=== PATIENT | male | born 1950 | race Caucasian/White ===

== ENCOUNTER 2020-03-23 09:18 | Inpatient (IN) | payer MEDICARE ==
[~2020-03-23] VITALS: Ht 172.7 cm; Wt 134.3 kg
[2020-03-23] MEDS ORDERED: SODIUM CHLORIDE 0.9% 1,000 ML IV ONE (09:23)
[2020-03-23] MEDS ORDERED: ONDANSETRON HCL 4MG/2ML INJ IV STA (09:23)
[2020-03-23] MEDS ORDERED: MORPHINE SULFATE 4 MG/ML CPJ (NOT FOR IM USE) IV STA (09:23)
[2020-03-23 09:46] LABS: BASOPHILS % 0.4 % (0.0-2.0); EOSINOPHILS % 1.7 % (0.0-5.0); HEMATOCRIT. 42.8 % (42.0-52.0); LYMPHOCYTES % 38.3 % (20.0-50.0); MEAN CORPUSCULAR HEMOGLOBIN 26.4 pg (28.0-32.0); MEAN CORPUSCULAR VOLUME 80.7 fL (80.0-94.0); MEAN PLATELET VOLUME 8.7 fl (7.4-10.4); MONOCYTES % 8.9 % (2.0-8.0); NEUTROPHILS % 50.7 % (40.0-76.0); PLATELET 200 x1000/uL (130-400); RED CELL DISTRIBUTION WIDTH 14.4 % (11.6-14.6)
[2020-03-23 09:52] LABS: D-DIMER 1.05 mg/L FEU (<0.50); PROTHROMBIN TIME 10.4 sec (9.6-11.0)
[2020-03-23 09:55] LABS: CHLORIDE 111 mEq/L (98-107)
[2020-03-23] MEDS ORDERED: MORPHINE SULFATE 4 MG/ML CPJ (NOT FOR IM USE) IV ONE (10:30)
[2020-03-23 11:02] LABS: CLARITY URINE CLEAR (CLEAR); COLOR URINE YELLOW (YELLOW); KETONES URINE NEGATIVE (NEGATIVE); LEUKOCYTE ESTERASE URINE NEGATIVE (NEGATIVE); NITRITE URINE NEGATIVE (NEGATIVE); OCCULT BLOOD URINE 3+ (NEGATIVE); PH URINE 5.5 (4.5-8.0); PROTEIN URINE NEGATIVE (NEGATIVE); SPECIFIC GRAVITY URINE 1.032 (1.005-1.030)
[2020-03-23] MEDS ORDERED: IOHEXOL-350 100 ML BOTTLE ONE (11:08)
[2020-03-23] MEDS ORDERED: SODIUM CHLORIDE 0.9% 1000ML BAG (SEPSIS BOLUS) IV NR (11:30)
[2020-03-23] MEDS ORDERED: PIPERACILLIN/TAZ 3.375G PREMIX 50 ML IV NR (11:30)
[2020-03-23] MEDS ORDERED: ACETAMINOPHEN 325MG TABLET PO PRN (12:30)
[2020-03-23] MEDS ORDERED: MORPHINE SULFATE 2 MG/ML CPJ (NOT FOR IM USE) IV PRN (12:30)
[2020-03-23] MEDS ORDERED: ONDANSETRON HCL 4MG/2ML INJ IV PRN (12:30)
[2020-03-23 12:47] VITALS: BP 163/69
[2020-03-23 13:00] VITALS: BP 163/96
[2020-03-23] MEDS ORDERED: AMLODIPINE 10MG TABLET PO SCH (14:30)
[2020-03-23 16:08] VITALS: BP 148/79
[2020-03-23 20:01] VITALS: BP 140/68
[2020-03-23] MEDS: LOSARTAN POTASSIUM 25 MG TABLET PO SCH (21:33)
[2020-03-24 00:08] VITALS: BP 108/51
[2020-03-24 04:00] VITALS: BP 109/46
[2020-03-24 06:09] LABS: BASOPHILS % 0.3 % (0.0-2.0); EOSINOPHILS % 1.2 % (0.0-5.0); HEMATOCRIT. 38.9 % (42.0-52.0); HEMOGLOBIN. 12.9 g/dL (14.0-18.0); LYMPHOCYTES % 24.9 % (20.0-50.0); MEAN CORPUSCULAR HEMOGLOBIN 26.6 pg (28.0-32.0); MEAN CORPUSCULAR VOLUME 80.4 fL (80.0-94.0); MEAN PLATELET VOLUME 8.9 fl (7.4-10.4); MONOCYTES % 10.2 % (2.0-8.0); NEUTROPHILS % 63.4 % (40.0-76.0); PLATELET 182 x1000/uL (130-400); RED BLOOD CELL COUNT 4.84 mill/uL (4.7-6.1); RED CELL DISTRIBUTION WIDTH 14.2 % (11.6-14.6)
[2020-03-24 06:33] LABS: CHLORIDE 111 mEq/L (98-107)
[2020-03-24 08:00] VITALS: BP 128/68
[2020-03-24] MEDS ORDERED: CEFTRIAXONE 1 G PREMIX 50 ML IV SCH (08:00)
[2020-03-24] MEDS: AMLODIPINE 10MG TABLET PO SCH (09:24)
[2020-03-24] MEDS: LOSARTAN POTASSIUM 25 MG TABLET PO SCH (09:24)
[2020-03-24] MEDS: CEFTRIAXONE 1,000 MG in DEXTROSE 5% WATER 50 ML IV SCH (10:37)
[2020-03-24 12:00] VITALS: BP 122/65
[2020-03-24 16:00] VITALS: BP 121/63
[2020-03-24 20:21] VITALS: BP 126/58
[2020-03-25 00:06] VITALS: BP 118/55
[2020-03-25 04:47] VITALS: BP 148/71
[2020-03-25 08:00] VITALS: BP 159/60
[2020-03-25] MEDS ORDERED: LEVO500T2 MT (08:26)
[2020-03-25] MEDS ORDERED: LOSA50TA41 MT (08:26)
[2020-03-25] MEDS: LOSARTAN POTASSIUM 25 MG TABLET PO SCH (09:36)
[2020-03-25] MEDS: AMLODIPINE 10MG TABLET PO SCH (09:37)
[2020-03-25] MEDS: CEFTRIAXONE 1,000 MG in DEXTROSE 5% WATER 50 ML IV SCH (09:37)
[2020-03-25 12:00] VITALS: BP 128/77
[2020-03-25 12:15] VITALS: BP 150/60
== END 2020-03-25 13:35 | disposition home or self-care (01) | DRG 308 ==
LOC: ER 09:18 → 6WST 11:42 → EDBEDREQTM 11:43 → EDBEDREQ 11:43 → ENRESERV 11:58
PROVIDERS: ADMIT Internal Medicine; ATTEND Internal Medicine
DX: I47.1 Supraventricular tachycardia (principal); A41.9 Sepsis, unspecified organism; Z68.42 Body mass index [BMI] 45.0-49.9, adult; E87.8 Other disorders of electrolyte and fluid balance, not elsewhere classified; E66.9 Obesity, unspecified; I10 Essential (primary) hypertension; I27.21 Secondary pulmonary arterial hypertension; N21.0 Calculus in bladder; N23 Unspecified renal colic; Z71.3 Dietary counseling and surveillance; N28.89 Other specified disorders of kidney and ureter
CPT/HCPCS: 36415; 71045; 71275; 74174; 80048; 80053; 81003; 83605; 83880; 84145; 84484; 85025; 85379; 93005; 93306; 99291; J0696; J2270; J2405; J2543; J7030; J7060; Q9967

== ENCOUNTER 2020-08-30 10:02 | Inpatient (IN) | payer MEDICARE ==
[~2020-08-30] VITALS: Ht 177.8 cm; Wt 136.0 kg
[~2020-08-30 10:02] MED LIST: LEVO500T2 MT; LOSA50TA41 MT
[2020-08-30] MEDS ORDERED: DEXAMETHASONE 10 MG/ML VIAL IV ONE (10:15)
[2020-08-30] MEDS ORDERED: CEFTRIAXONE 1 G PREMIX 50 ML IV ONE (10:15)
[2020-08-30] MEDS ORDERED: AZITHROMYCIN 500 MG in DEXT 5% WATER 250 ML IV ONE (10:15)
[2020-08-30 10:27] LABS: HEMATOCRIT. 49.9 % (42.0-52.0); HEMOGLOBIN. 16.1 g/dL (14.0-18.0); MEAN CORPUSCULAR HEMOGLOBIN 25.5 pg (28.0-32.0); MEAN PLATELET VOLUME 9.9 fl (7.4-10.4); PLATELET 169 x1000/uL (130-400); RED BLOOD CELL COUNT 6.32 mill/uL (4.7-6.1); RED CELL DISTRIBUTION WIDTH 14.7 % (11.6-14.6)
[2020-08-30 10:37] LABS: CHLORIDE 108 mEq/L (98-107)
[2020-08-30 10:46] LABS: FIBRINOGEN 344 mg/dL (200-400); INR 1.2; PROTHROMBIN TIME 12.5 sec (9.6-11.0)
[2020-08-30 10:49] LABS: D-DIMER > 35.20 mg/L FEU (<0.50)
[2020-08-30 10:57] LABS: CREATINE KINASE 1029 IU/L (39-308)
[2020-08-30] MEDS ORDERED: CEFTRIAXONE 1,000 MG in DEXTROSE 5% WATER 50 ML IV NR (11:00)
[2020-08-30 11:42] LABS: BG BASE EXCESS -8.5 mmol/L (-2.0-2.0); BG CARBOXYHEMOGLOBIN 0.7 % (0.5-1.5); BG METHEMOGLOBIN 0.2 % (0.0-1.5); BG OXYGEN SATURATION 89.9 % (92.0-98.5); BG OXYHEMOGLOBIN 89.1 % (94.0-97.0); BG PH 7.362 (7.350-7.450); BG PO2 62.1 mmHg (75.0-100.0); BG SAMPLE SITE LEFT BRACHIAL; BG TOTAL HEMOGLOBIN 16.6 g/dL (12.0-18.0); BG VENT MODE MASK - BIPAP
[2020-08-30 11:47] LABS: NUCLEATED RED BLOOD CELLS 2 /100 WBC
[2020-08-30 11:49] LABS: PLATELET ESTIMATE NORMAL
[2020-08-30] MEDS ORDERED: CEFTRIAXONE 1 G PREMIX 50 ML IV SCH (15:15)
[2020-08-30] MEDS ORDERED: DOCUSATE SODIUM 100MG CAPSULE PO PRN ×2 (15:15→22:45)
[2020-08-30] MEDS ORDERED: ACETAMINOPHEN 325MG TABLET PO PRN ×2 (15:15→22:30)
[2020-08-30] MEDS ORDERED: CLONIDINE 0.1MG TABLET PO PRN ×2 (15:15→22:45)
[2020-08-30] MEDS ORDERED: GUAIFENESIN 200MG/10ML SUGAR FREE UDC PO PRN ×2 (15:15→22:45)
[2020-08-30] MEDS ORDERED: MORPHINE SULFATE 2 MG/ML CPJ (NOT FOR IM USE) IV PRN ×2 (15:15→22:45)
[2020-08-30] MEDS ORDERED: HYDROCODONE/ACETAMINOPHEN 5/325MG TABLET PO PRN ×2 (15:15→22:45)
[2020-08-30] MEDS ORDERED: AZITHROMYCIN 500 MG in DEXT 5% WATER 250 ML IV SCH (15:15)
[2020-08-30] MEDS ORDERED: ONDANSETRON HCL 4MG/2ML INJ IV PRN ×2 (15:15→22:45)
[2020-08-30] MEDS ORDERED: DIPHENHYDRAMINE 50MG/ML VIAL IV PRN ×2 (15:15→22:45)
[2020-08-30] MEDS ORDERED: ALBUTEROL 6.7GM HFA INHALER ORI PRN ×2 (15:15→22:30)
[2020-08-30] MEDS ORDERED: ENOXAPARIN 40MG/0.4ML SYR SUBCUT SCH (15:15)
[2020-08-30] MEDS ORDERED: MAGNESIUM/ALUMINUM HYDROXIDE/SIMETHICONE 30ML UDC PO PRN ×2 (15:15→22:45)
[2020-08-30] MEDS ORDERED: LORAZEPAM 2MG/ML CPJ IV PRN ×2 (15:15→22:45)
[2020-08-30] MEDS ORDERED: CEFTRIAXONE SODIUM 1 G/VIAL ONE (15:50)
[2020-08-30] MEDS ORDERED: SODIUM CHLORIDE 0.9% INJ 3ML FLUSH IVF SCH (22:00)
[2020-08-30] MEDS ORDERED: ENOXAPARIN 100MG/ML SYR SUBCUT NR (22:30)
[2020-08-31] MEDS ORDERED: ENOXAPARIN 150MG/ML SYR SUBCUT SCH ×2 (06:00→13:30)
[2020-08-31 06:30] LABS: CHLORIDE 108 mEq/L (98-107)
[2020-08-31 06:53] LABS: HEMATOCRIT. 51.1 % (42.0-52.0); HEMOGLOBIN. 16.9 g/dL (14.0-18.0); MEAN CORPUSCULAR HEMOGLOBIN 26.2 pg (28.0-32.0); MEAN CORPUSCULAR VOLUME 79.3 fL (80.0-94.0); MEAN PLATELET VOLUME 10.9 fl (7.4-10.4); PLATELET 181 x1000/uL (130-400); RED BLOOD CELL COUNT 6.45 mill/uL (4.7-6.1); RED CELL DISTRIBUTION WIDTH 14.7 % (11.6-14.6)
[2020-08-31] MEDS: SODIUM CHLORIDE 0.9% INJ 3ML FLUSH IVF SCH ×2 (08:19→13:28)
[2020-08-31] MEDS ORDERED: SODIUM POLYSTYRENE SULFONATE 15 G/60 ML BOT PO NR (08:45)
[2020-08-31] MEDS ORDERED: INSULIN REGULAR (HUMULIN R) 300UNITS/3ML VIAL IV SCH (09:00)
[2020-08-31] MEDS ORDERED: SODIUM BICARBONATE 8.4% 1 MEQ/ML 50ML SYR IV SCH (09:00)
[2020-08-31] MEDS ORDERED: CALCIUM CHLORIDE 1,000 MG in DEXT 5% WATER 90 ML IV NR (09:00)
[2020-08-31] MEDS ORDERED: LIDOCAINE HCL 1% 20ML VIAL (Pyxis) INJ ONE (09:28)
[2020-08-31] MEDS ORDERED: DEXTROSE 50% WATER 50ML SYRINGE IV NR (10:30)
[2020-08-31] MEDS ORDERED: HEPARIN 100 UNITS/1 ML VIAL IVF SCH (10:30)
[2020-08-31] MEDS ORDERED: INSULIN REGULAR (HUMULIN R) 300UNITS/3ML VIAL IV NR (10:30)
[2020-08-31 10:33] LABS: T4 FREE 1.59 ng/dL (0.76-1.46)
[2020-08-31] MEDS ORDERED: CEFTRIAXONE 1,000 MG in DEXTROSE 5% WATER 50 ML IV SCH (11:00)
[2020-08-31] MEDS ORDERED: AZITHROMYCIN 500 MG in DEXT 5% WATER 250 ML IV SCH (12:00)
[2020-08-31 14:21] LABS: PLATELET ESTIMATE NORMAL
[2020-08-31 14:38] LABS: CREATINE KINASE MB FRACTION 36.8 ng/mL (0.5-3.6)
[2020-08-31] MEDS ORDERED: ETOMIDATE 2MG/ML 10ML VIAL IV ONE (14:45)
[2020-08-31] MEDS ORDERED: PROPOFOL 10MG/ML 100ML 100 ML IV PRN (14:45)
[2020-08-31] MEDS ORDERED: FENTANYL CITRATE/PF 50MCG/ML 2ML VIAL IV NR (14:45)
[2020-08-31] MEDS ORDERED: VECURONIUM BROMIDE 10 MG/VIAL IV SCH (14:45)
[2020-08-31] MEDS ORDERED: FENTANYL CITRATE/PF 2,500 MCG in SODIUM CHLORIDE 0.9% 200 ML IV PRN (15:45)
[2020-08-31 16:46] LABS: BG BASE EXCESS -20.1 mmol/L (-2.0-2.0); BG CARBOXYHEMOGLOBIN 0.3 % (0.5-1.5); BG DEOXYHEMOGLOBIN 1.8 % (0.0-5.0); BG FRACTION INSPIRED OXYGEN 100; BG HCO3 ACT 14.2 mmol/L (22.0-26.0); BG METHEMOGLOBIN 0.6 % (0.0-1.5); BG OXYGEN SATURATION 98.2 % (92.0-98.5); BG OXYHEMOGLOBIN 97.3 % (94.0-97.0); BG PH 6.913 (7.350-7.450); BG PO2 187.8 mmHg (75.0-100.0); BG SAMPLE SITE RIGHT BRACHIAL; BG TOTAL HEMOGLOBIN 17.7 g/dL (12.0-18.0); BG TOTAL RESPIRATORY RATE 18 b/min; BG VENT MODE VENT - AC
[2020-08-31] MEDS ORDERED: NOREPINEPHRINE 8MG/250ML PMX 250 ML IV ONE ×2 (17:45→18:00)
[2020-08-31 18:00] VITALS: BP 57/35
== END 2020-08-31 18:21 | disposition expired | DRG 871 ==
LOC: ER 10:32 → MICUSO 10:58
PROVIDERS: ADMIT Internal Medicine; ATTEND Internal Medicine
PROC: 5A09457 Assistance with Respiratory Ventilation, 24-96 Consecutive Hours, Continuous Positive Airway Pressure (ICD-10-PCS; principal; 2020-08-30)
PROC: 5A1935Z Respiratory Ventilation, Less than 24 Consecutive Hours (ICD-10-PCS; 2020-08-31)
PROC: 5A12012 Performance of Cardiac Output, Single, Manual (ICD-10-PCS; 2020-08-31)
PROC: 5A1D70Z Performance of Urinary Filtration, Intermittent, Less than 6 Hours Per Day (ICD-10-PCS; 2020-08-31)
PROC: 05HM33Z Insertion of Infusion Device into Right Internal Jugular Vein, Percutaneous Approach (ICD-10-PCS; 2020-08-31)
PROC: B543ZZA Ultrasonography of Right Jugular Veins, Guidance (ICD-10-PCS; 2020-08-31)
PROC: 0BH18EZ Insertion of Endotracheal Airway into Trachea, Via Natural or Artificial Opening Endoscopic (ICD-10-PCS; 2020-08-31)
DX: A41.89 Other specified sepsis (principal); J12.89 Other viral pneumonia; J96.01 Acute respiratory failure with hypoxia; N17.0 Acute kidney failure with tubular necrosis; U07.1 COVID-19; E43 Unspecified severe protein-calorie malnutrition; M62.82 Rhabdomyolysis; I82.401 Acute embolism and thrombosis of unspecified deep veins of right lower extremity; E87.2 Acidosis; D68.69 Other thrombophilia; Z68.41 Body mass index [BMI] 40.0-44.9, adult; I46.9 Cardiac arrest, cause unspecified; N18.9 Chronic kidney disease, unspecified; I12.9 Hypertensive chronic kidney disease with stage 1 through stage 4 chronic kidney disease, or unspecified chronic kidney disease; E87.5 Hyperkalemia; N28.1 Cyst of kidney, acquired; Z79.2 Long term (current) use of antibiotics; Z79.899 Other long term (current) drug therapy
CPT/HCPCS: 36415; 36600; 71045; 76770; 76937; 80053; 80061; 82375; 82550; 82553; 82728; 82805; 82962; 83036; 83605; 83615; 83880; 84145; 84439; 84443; 84484; 85025; 85379; 85384; 86140; 93005; 93970; 96365; 96368; 96375; 99291; C1752; C1769; J0456; J0696; J1100; J1650; J1815; J2060; J2270; J2704; J3490; J7060; U0003